=== PATIENT | female | born 1960 ===

== ENCOUNTER 2019-01-22 06:09 | Day surgery (SDC) | payer OTHER ==
[~2019-01-22] VITALS: Ht 165.1 cm; Wt 72.6 kg
[2019-01-22] VITALS (7 sets, daily range): BP systolic 109–119; BP diastolic 56–75
[~2019-01-22 06:09] MED LIST: Akten 3.5% 1ml Btl ONE; Diclofenac Sod 0.1% Op Soln ONE; Phenylephrine 2.5% Op 2ml Soln ONE; Tobradex Opth Susp 2.5ml ONE; Tropicamide 1% Opth 15ml Soln ONE; Vigamox Opth Soln 3ml ONE
[2019-01-22] MEDS: Tropicamide 1% Opth 15ml Soln LEFT EYE SCH ×3 (06:38→06:53)
[2019-01-22] MEDS: Tobradex Opth Susp 2.5ml LEFT EYE SCH ×3 (06:39→06:54)
[2019-01-22] MEDS: Diclofenac Sod 0.1% Op Soln LEFT EYE SCH ×3 (06:39→06:54)
[2019-01-22] MEDS: Phenylephrine 2.5% Op 2ml Soln LEFT EYE SCH ×3 (06:39→06:53)
[2019-01-22] MEDS: Akten 3.5% 1ml Btl LEFT EYE SCH ×3 (06:39→06:54)
[2019-01-22] MEDS: Vigamox Opth Soln 3ml LEFT EYE SCH ×3 (06:39→06:54)
[2019-01-22] MEDS ORDERED: GABAPENTIN300 MG ORAL (07:12)
[2019-01-22] MEDS ORDERED: FLUOXETINE HCL40 MG ORAL (07:12)
[2019-01-22] MEDS ORDERED: EPINEPHrine 1mg/1ml Amp ONE (07:14)
[2019-01-22] MEDS ORDERED: BSS 15ml BTL ONE (07:15)
[2019-01-22] MEDS ORDERED: Dexamethasone 4mg/ml vial ONE (07:15)
[2019-01-22] MEDS ORDERED: BSS 500ml btl ONE (07:15)
[2019-01-22] MEDS ORDERED: Lidocaine 1% MPF 10mg/ml 5ml ONE (07:15)
[2019-01-22] MEDS ORDERED: acetaZOLAMIDE 500mg Inj ONE (07:15)
[2019-01-22] MEDS ORDERED: Carbachol 0.01% Op Soln 1.5ml vial ONE (07:15)
[2019-01-22] MEDS ORDERED: Povidone-Iodine 5% opth solution ONE (07:16)
[2019-01-22] MEDS ORDERED: Sodium Hyaluronate 14 mg/ml 0.85ml ONE (07:16)
[2019-01-22] MEDS ORDERED: Propofol 200mg/20ml IV ONE (07:19)
[2019-01-22] MEDS ORDERED: fentaNYL 100 mcg/2 mL IV ONE (07:19)
[2019-01-22] MEDS ORDERED: Midazolam 2mg/2ml Inj ONE (07:19)
[2019-01-22] MEDS ORDERED: LR 1000ml ONE (07:30)
--- NOTE | 2019-01-22 07:41 | Pre-Procedure Note/Attestation ---
Pre-Procedure Note/Attestation Complete Prior to Procedure Planned Procedure: left Procedure Narrative: cataract extraction with implant left eye Indications for Procedure Pre-Operative Diagnosis: cataract left eye Attestation I attest that I discussed the nature of the procedure; its benefits; risks and complications; and alternatives (and the risks and benefits of such alternatives ), prior to the procedure, with the patient (or the patient's legal customer care representative). I attest that, if there was a reasonable possibility of needing a blood transfusion, the patient (or the patient's legal customer care representative) was given the [facility] standardized written summary, pursuant to the [place] Blood Safety Act ([place] Health and Safety Code # 1645, as amended). I attest that I re-evaluated the patient just prior to the surgery and that there has been no change in the patient's H&P, except as documented below: Krishna Burk MD Jan 22, 2019 07:41
[2019-01-22] MEDS ORDERED: LR 1000ml 1,000 ML IVLG SCH (07:54)
--- NOTE | 2019-01-22 07:54 | Anethesia Preoperative Eval ---
Anesthesia Pre-op PMH/ROS General Date of Evaluation: Jan 22, 2019 Time of Evaluation: 07:20 Anesthesiologist: Boyd ASA Score: ASA 2 Mallampati Score Class I : Soft palate, uvula, fauces, pillars visible Class II: Soft palate, uvula, fauces visible Class III: Soft palate, base of uvula visible Class IV: Only hard plate visible Mallampati Classification: Class II Surgeon: Wm Diagnosis: L eye cataract Surgical Procedure: L eye cataract extraction Anesthesia History: none Family History: no anesthesia problems Allergies: Coded Allergies: No Known Allergies (Unverified , 01/22/19) Medications: see eMAR Patient NPO?: Yes Past Medical History Cardiovascular: Denies: HTN, CAD, ID, valve dz, arrhythmia, other Pulmonary: Denies: asthma, COPD, CON, other Gastrointestinal/Genitourinary: Reports: GERD, other - cystocele s/p Sx; Denies: CRI, ESRD Neurologic/Psychiatric: Reports: depression/anxiety, other - chronic pain; Denies: dementia, CVA, TIA Endocrine: Denies: DM, hypothyroidism, steroids, other HEENT: Reports: cataract (L), cataract (R); Denies: glaucoma, [place] (L), [place] (R), other Hematology/Immune: Denies: anemia, DVT, bleeding disorder, other Musculoskeletal/Integumentary: Reports: DJD; Denies: OA, RA, DDD, edema, other PMH Narrative: as above PSxH Narrative: Multiple see H&P Anesthesia Pre-op Phys. Exam Physician Exam Last Vital Signs Date Time Temp Pulse Resp B/P (MAP) Pulse Ox O2 Delivery O2 Flow Rate FiO2 01/22/19 07:09 Room Air 01/22/19 06:44 97.0 84 20 119/73 99 Constitutional: NAD Neurologic: CN 2-12 intact Cardiovascular: RRR, no M/R/G Respiratory: CTA Gastrointestinal: S/NT/ND Airway Exam Mallampati Score: Class II MO: full Neck: flexible ROM: limited Teeth: missing Dentures: no upper, no lower Anesthesia Pre-op A/P Labs see chart Studies Pre-op Studies: EKG - NSR Risk Assessment & Plan Assessment: ASA 2 Plan: MAC Status Change Before Surgery: No Pre-Antibiotics Drug: none Gaurav Nix MD Jan 22, 2019 07:54
[2019-01-22] MEDS ORDERED: fentaNYL 100 mcg/2 mL IV PRN (08:00)
--- NOTE | 2019-01-22 08:07 | Brief Operative Note ---
Immediate Post Operative Note Operative Note Pre-op Diagnosis: cataract left eye Procedure: phacoemulsification of cataract with implant left eye Post-op Diagnosis: same as pre-op Surgeon: krishna bautista Marketing Operations Manager: none Anesthesiologist: lázaro moreno md Anesthesia: MAC Specimen: none Complications: none Condition: stable Fluids: none Estimated Blood Loss: none Drains: none Implant(s) used?: Yes Krishna Bautista MD Jan 22, 2019 08:07
--- NOTE | 2019-01-22 08:11 | Immediate Post-Op Evaluation ---
Immediate Post-Op Evalulation Immediate Post-Op Evalulation Procedure: L eye cataract extraction with IOL Date of Evaluation: Jan 22, 2019 Time of Evaluation: 08:10 IV Fluids: 300 Blood Products: none Estimated Blood Loss: none Urinary Output: none Blood Pressure Systolic: 114 Blood Pressure Diastolic: 68 Pulse Rate: 76 Respiratory Rate: 20 O2 Sat by Pulse Oximetry: 98 Temperature (Fahrenheit): 97.6 Pain Score (1-10): 1 Nausea: No Vomiting: No Complications none Patient Status: awake, patent, none Hydration Status: adequate Gaurav Nix MD Jan 22, 2019 08:11
--- NOTE | 2019-01-22 08:51 | 48 Hour Post Anesthesia Eval ---
Post Anesthesia Evaluation Procedure: L eye cataract extraction with IOL Date of Evaluation: Jan 22, 2019 Time of Evaluation: 08:50 Blood Pressure Systolic: 116 0: 72 Pulse Rate: 68 Respiratory Rate: 20 Temperature (Fahrenheit): 97.6 O2 Sat by Pulse Oximetry: 98 Airway: patent Nausea: No Vomiting: No Pain Intensity: 1 Hydration Status: adequate Cardiopulmonary Status: stable Mental Status/LOC: patient returned to baseline Follow-up Care/Observations: n/a Post-Anesthesia Complications: none Follow-up care needed: ready to discharge Gaurav Nix MD Jan 22, 2019 08:51
--- NOTE | 2019-01-22 16:45 | Operative Note - Dictated ---
DATE OF OPERATION: 01/22/2019 PREOPERATIVE DIAGNOSIS: Cataract, left eye. POSTOPERATIVE DIAGNOSIS: Cataract, left eye. PROCEDURE: Phacoemulsification of cataract left eye with placement of posterior chamber intraocular lens. SURGEON: Krishna Burk M.D. ([facility] [place]) SIEVE GRADER TENDER: None. ANESTHESIA: MAC/topical. ANESTHESIOLOGIST: Gaurav Nix M.D. INDICATION FOR PROCEDURE: Poor vision, left eye. DESCRIPTION OF FINDINGS: Dense posterior subcapsular cataract, left eye. DESCRIPTION OF PROCEDURE: The patient received a topical anesthetic block consisting of 3.5% Akten eye drops. The eye was then prepped and draped in usual manner. A lid speculum was placed and the operating Zeiss microscope was positioned. A temporal corneal groove was made with the harmony blade. A SuperSharp blade made a stab incision at the 6 o'clock position. A 0.1 mL of 1% nonpreserved intracameral lidocaine was injected. Healon was filled into the anterior chamber and a 2.5/2.9 mm trapezoidal harmony blade was used to complete the temporal corneal wound. A cystotome was used to create an anterior capsular flap. Utrata forceps were used to complete the capsulorrhexis. BSS on a cannula was used to hydrodissect the nucleus. The lens nucleus was phacoemulsified in a phaco-fracture technique. Remaining cortical material with the I/A and the posterior capsule was polished with the I/A on Cap vac. Healon was instilled into the capsular bag and anterior chamber, and then Tecnis pre-loaded foldable one-piece posterior chamber intraocular lens, model PCB00, power 18.0 diopter, serial #[id number] was placed in the capsular bag. The I/A tip was used to remove the Healon and position the lens. The wound edge was hydrated with BSS and a blunt-tipped cannula. The wound was checked and found to be watertight. The lid speculum was removed. A drop of TobraDex and Vigamox was placed. A clear plastic shield was taped over the eye. The patient tolerated the procedure well and left the operating room in good condition. Krishna Burk M.D. ([facility] [place]) DR: RENATO JOB#: [id number] CC:
== END 2019-01-22 09:05 | disposition home or self-care (01) ==
LOC: SUR 06:09
DX: H25.042 Posterior subcapsular polar age-related cataract, left eye (principal); F32.9 Major depressive disorder, single episode, unspecified; F41.9 Anxiety disorder, unspecified; M51.36 Other intervertebral disc degeneration, lumbar region; Z87.891 Personal history of nicotine dependence
CPT/HCPCS: 66984; J0171; J1100; J2250; J2704; J3010; V2632; 94003; 94150

== ENCOUNTER 2019-02-26 06:09 | Day surgery (SDC) | payer OTHER ==
--- NOTE | 2019-02-25 12:47 | Pre-Procedure Note/Attestation ---
Pre-Procedure Note/Attestation Complete Prior to Procedure Planned Procedure: right Procedure Narrative: cataract extraction with implant right eye Indications for Procedure Pre-Operative Diagnosis: cataract right eye Attestation I attest that I discussed the nature of the procedure; its benefits; risks and complications; and alternatives (and the risks and benefits of such alternatives ), prior to the procedure, with the patient (or the patient's legal human resources hr representative). I attest that, if there was a reasonable possibility of needing a blood transfusion, the patient (or the patient's legal human resources hr representative) was given the [facility] standardized written summary, pursuant to the [place] Blood Safety Act ([place] Health and Safety Code # 1645, as amended). I attest that I re-evaluated the patient just prior to the surgery and that there has been no change in the patient's H&P, except as documented below: Krishna Burk MD February 25, 2019 12:47
[2019-02-26] VITALS (9 sets, daily range): BP systolic 109–119; BP diastolic 51–73
[~2019-02-26] VITALS: Ht 167.6 cm; Wt 68.0 kg
[~2019-02-26 06:09] MED LIST changes: -Akten 3.5% 1ml Btl ONE; -Diclofenac Sod 0.1% Op Soln ONE; +FLUOXETINE HCL40 MG ORAL; +GABAPENTIN300 MG ORAL; -Phenylephrine 2.5% Op 2ml Soln ONE; -Tobradex Opth Susp 2.5ml ONE; -Tropicamide 1% Opth 15ml Soln ONE; -Vigamox Opth Soln 3ml ONE
[2019-02-26] MEDS ORDERED: Tropicamide 1% Opth 15ml Soln ONE (06:36)
[2019-02-26] MEDS ORDERED: Akten 3.5% 1ml Btl ONE (06:36)
[2019-02-26] MEDS ORDERED: Tobradex Opth Susp 2.5ml ONE (06:36)
[2019-02-26] MEDS ORDERED: Phenylephrine 2.5% Op 2ml Soln ONE (06:36)
[2019-02-26] MEDS ORDERED: Vigamox Opth Soln 3ml ONE (06:36)
[2019-02-26] MEDS ORDERED: Diclofenac Sod 0.1% Op Soln ONE (06:36)
[2019-02-26] MEDS: Akten 3.5% 1ml Btl RIGHT EYE SCH ×3 (06:47→07:16)
[2019-02-26] MEDS: Tobradex Opth Susp 2.5ml RIGHT EYE SCH ×3 (06:47→07:17)
[2019-02-26] MEDS: Diclofenac Sod 0.1% Op Soln RIGHT EYE SCH ×3 (06:48→07:17)
[2019-02-26] MEDS: Tropicamide 1% Opth 15ml Soln RIGHT EYE SCH ×3 (06:48→07:16)
[2019-02-26] MEDS: Phenylephrine 2.5% Op 2ml Soln RIGHT EYE SCH ×3 (06:48→07:16)
[2019-02-26] MEDS: Vigamox Opth Soln 3ml RIGHT EYE SCH ×3 (06:49→07:16)
[2019-02-26] MEDS ORDERED: MAXALT10 MG PO (07:10)
[2019-02-26] MEDS ORDERED: BSS 15ml BTL ONE (07:28)
[2019-02-26] MEDS ORDERED: BSS 500ml btl ONE (07:28)
[2019-02-26] MEDS ORDERED: Lidocaine 1% MPF 10mg/ml 5ml ONE (07:28)
[2019-02-26] MEDS ORDERED: EPINEPHrine 1mg/1ml Amp ONE (07:28)
[2019-02-26] MEDS ORDERED: Dexamethasone 4mg/ml vial ONE (07:28)
[2019-02-26] MEDS ORDERED: Sodium Hyaluronate 14 mg/ml 0.85ml ONE (07:29)
[2019-02-26] MEDS ORDERED: Povidone-Iodine 5% opth solution ONE (07:29)
--- NOTE | 2019-02-26 07:55 | Anethesia Preoperative Eval ---
Anesthesia Pre-op PMH/ROS General Date of Evaluation: February 26, 2019 Time of Evaluation: 08:25 Anesthesiologist: Evie Hurtado CRNA ASA Score: ASA 2 Mallampati Score Class I : Soft palate, uvula, fauces, pillars visible Class II: Soft palate, uvula, fauces visible Class III: Soft palate, base of uvula visible Class IV: Only hard plate visible Mallampati Classification: Class III Surgeon: Wm Diagnosis: RIGHT eye cataract Surgical Procedure: RIGHT eye cataract extraction with IOL Anesthesia History: none Family History: no anesthesia problems Allergies: Coded Allergies: No Known Allergies (Unverified , 01/22/19) Medications: see eMAR Patient NPO?: Yes NPO Date: February 26, 2019 NPO Time: 00:00 Past Medical History Cardiovascular: Denies: HTN, CAD, [place], valve dz, arrhythmia, other Pulmonary: Denies: asthma, COPD, CON, other Gastrointestinal/Genitourinary: Denies: GERD, CRI, ESRD, other Neurologic/Psychiatric: Reports: depression/anxiety, other - Migraines; Denies: dementia, CVA, TIA Endocrine: Denies: DM, hypothyroidism, steroids, other HEENT: Reports: cataract (L), cataract (R); Denies: glaucoma, [place] (L), [place] (R), other Hematology/Immune: Denies: anemia, DVT, bleeding disorder, other Musculoskeletal/Integumentary: Reports: OA; Denies: RA, DJD, DDD, edema, other PMH Narrative: as noted above PSxH Narrative: as noted in chart Anesthesia Pre-op Phys. Exam Physician Exam Last Vital Signs Date Time Temp Pulse Resp B/P (MAP) Pulse Ox O2 Delivery O2 Flow Rate FiO2 02/26/19 07:11 Room Air 02/26/19 06:55 97.1 79 18 110/67 97 Constitutional: NAD Neurologic: CN 2-12 intact Cardiovascular: RRR Respiratory: CTA Gastrointestinal: S/NT/ND Airway Exam Mallampati Score: Class III MO: full Neck: FROM TMD: 2-3 FB ROM: full Teeth: intact Dentures: no upper, no lower Anesthesia Pre-op A/P Risk Assessment & Plan Assessment: ASA 2, ok to proceed Plan: MAC Status Change Before Surgery: No Pre-Antibiotics Given Within 1 Hr of Incision: Evie Ramsey CRNA February 26, 2019 07:55
[2019-02-26] MEDS ORDERED: Midazolam 2mg/2ml Inj ONE (08:21)
[2019-02-26] MEDS ORDERED: fentaNYL 100 mcg/2 mL IV ONE (08:22)
[2019-02-26] MEDS ORDERED: Propofol 200mg/20ml IV ONE (08:26)
[2019-02-26] MEDS ORDERED: Sterile Water Irrig 1000ml IRRIG ONE (08:30)
[2019-02-26] MEDS ORDERED: NS Irrig 1000ml ONE (08:30)
[2019-02-26] MEDS ORDERED: LR 1000ml ONE (08:30)
--- NOTE | 2019-02-26 08:59 | Brief Operative Note ---
Immediate Post Operative Note Operative Note Pre-op Diagnosis: cataract right eye Procedure: phacoemulsification of cataract with implant right eye Post-op Diagnosis: same as pre-op Surgeon: Krishna Burk Book Mender: none Anesthesiologist: Evie Hurtado crna Anesthesia: MAC Specimen: none Complications: none Condition: stable Fluids: none Estimated Blood Loss: none Drains: none Implant(s) used?: Yes Krishna Burk MD February 26, 2019 08:59
--- NOTE | 2019-02-26 09:08 | Immediate Post-Op Evaluation ---
Immediate Post-Op Evalulation Immediate Post-Op Evalulation Procedure: RIGHT eye cataract extraction with IOL Date of Evaluation: February 26, 2019 Time of Evaluation: 08:59 IV Fluids: LR 500 ml Blood Pressure Systolic: 115 Blood Pressure Diastolic: 59 Pulse Rate: 80 Respiratory Rate: 22 O2 Sat by Pulse Oximetry: 100 Temperature (Fahrenheit): 97.8 Pain Score (1-10): 0 Nausea: No Vomiting: No Complications none Patient Status: awake, reacts, patent Hydration Status: adequate Given Within 1 Hr of Incision: Evie Ramsey CRNA February 26, 2019 09:08
--- NOTE | 2019-02-26 09:59 | 48 Hour Post Anesthesia Eval ---
Post Anesthesia Evaluation Procedure: RIGHT eye cataract extraction with IOL Date of Evaluation: February 26, 2019 Time of Evaluation: 09:58 Blood Pressure Systolic: 115 - 59 0: 59 Pulse Rate: 80 Respiratory Rate: 22 Temperature (Fahrenheit): 97.1 O2 Sat by Pulse Oximetry: 100 Airway: patent Nausea: No Vomiting: No Pain Intensity: 0 Hydration Status: adequate Cardiopulmonary Status: stable Mental Status/LOC: patient returned to baseline Follow-up Care/Observations: per opthamology Post-Anesthesia Complications: none Follow-up care needed: N/A Evie Hurtado CRNA February 26, 2019 09:59
--- NOTE | 2019-02-26 19:45 | Operative Note - Dictated ---
DATE OF OPERATION: 02/26/2019 PREOPERATIVE DIAGNOSIS: Cataract, right eye. POSTOPERATIVE DIAGNOSIS: Cataract, right eye. PROCEDURE: Phacoemulsification of cataract, right eye with placement of posterior chamber intraocular lens. SURGEON: Krishna Burk M.D. ACTIVITY MANAGER: None. ANESTHESIA: MAC/topical. ANESTHESIOLOGIST: Evie Hurtado CRNA. INDICATION FOR PROCEDURE: Poor vision, right eye. DESCRIPTION OF FINDINGS: Nuclear sclerotic cataract, right eye. DESCRIPTION OF PROCEDURE: The patient received a topical anesthetic block consisting of 3.5% Akten eye drops. The eye was then prepped and draped in the usual manner. A lid speculum was placed. An operating Zeiss microscope was positioned. The temporal corneal groove was made with the harmony blade. A SuperSharp blade made a stab incision at the 12 o'clock position. A 0.1 mL of 1% nonpreserved intracameral lidocaine was injected. Healon was instilled into the anterior chamber and a 2.5/2.8 mm trapezoidal harmony blade was used to complete the temporal corneal wound. A cystotome was used to create anterior capsular flap. Utrata forceps were used to complete the capsulorrhexis. BSS on a cannula was used to hydrodissect the nucleus. The lens nucleus was phacoemulsified in a phacofracture technique. Remaining cortical material was removed with the I/A and the posterior capsule was polished with the I/A on Cap vac. Healon was instilled in a capsular bag and anterior chamber and an TECNIS foldable one-piece preloaded posterior chamber intraocular lens, model PCB00, power of 16.5 diopter, serial number [id number] was placed into capsular bag. The I/A tip was used to remove the Healon and position the lens. The wound edge was hydrated with BSS and a blunt-tipped cannula. The wound was checked and found to be watertight. The lid speculum was removed and a drop of TobraDex and Vigamox placed. A clear plastic shield was taped over the eye. The patient tolerated the procedure well and left the operating room in good condition. Krishna Burk M.D. ([facility] [place]) DR: Anastasiia JOB#: [id number] CC:
== END 2019-02-26 10:35 | disposition home or self-care (01) ==
LOC: SUR 06:09
DX: H25.11 Age-related nuclear cataract, right eye (principal); F32.9 Major depressive disorder, single episode, unspecified; F41.9 Anxiety disorder, unspecified; M19.90 Unspecified osteoarthritis, unspecified site; M51.36 Other intervertebral disc degeneration, lumbar region; Z87.891 Personal history of nicotine dependence
CPT/HCPCS: 66984; J0171; J1100; J2250; J2704; J3010; V2632; 94003; 94150